=== PATIENT | male | born 1980 | race Caucasian/White ===

== ENCOUNTER 2016-10-09 16:58 | Emergency (ER) | payer SELFPAY ==
[~2016-10-09] VITALS: Ht 180.3 cm; Wt 78.0 kg
[~2016-10-09 16:58] MED LIST: NONE REPORTED
[2016-10-09] MEDS ORDERED: IBUPROFEN 400MG TABLET PO ONE (18:30)
[2016-10-09 20:45] VITALS: BP 143/74
== END 2016-10-09 20:46 | disposition home or self-care (01) ==
LOC: ER 17:51
DX: S29.012A Strain of muscle and tendon of back wall of thorax, initial encounter (principal); V49.9XXA Car occupant (driver) (passenger) injured in unspecified traffic accident, initial encounter; Y93.89 Activity, other specified; Y99.8 Other external cause status; Y92.89 Other specified places as the place of occurrence of the external cause
CPT/HCPCS: 99282